=== PATIENT | female | born 1965 | race Caucasian/White ===

== ENCOUNTER → 2019-08-24 08:50 | Outpatient (BNVA) | payer MEDICAID, SELFPAY | PROVIDERS: Referring Provider Nurse Practitioner; Visit Provider Specialist | DX: G43.711 Chronic migraine without aura, intractable, with status migrainosus (principal); M79.7 Fibromyalgia | CPT/HCPCS: 99204; 99214 ==

== ENCOUNTER 2019-08-29 23:08 | Emergency (ER) | payer MEDICAID, SELFPAY ==
[2019-08-29 23:21] VITALS: BP 130/84; PULSE 88; RESP 16; TEMP 36.6; O2SAT 98; BMI 29.8
--- NOTE | 2019-08-29 23:34 | ED_ITS ---
HPI - Female Genitourinary General: Chief complaint: Urogenital-Female Stated complaint: kidney problems Time Seen by Provider: 08/29/19 23:21 History of Present Illness: HPI Narrative: Patient complained about urinary frequency hesitation for the last week. Has been taking Azo-Standard today. MD elicited complaint: dysuria Pertinent past history: recurrent UTIs Onset (ago): day(s) Associated symptoms: Deny abdominal pain, headache(s) or nausea Date of Last Menstrual Period: 08/22/19 Review of Systems Const: Denies: fever, chills or body aches Eyes: Denies: change in vision or blurry vision ENMT: Denies: throat pain or nasal congestion Card: Denies: chest pain or shortness of breath on exertion Resp: Denies: shortness of breath, productive cough or non-productive cough GI: Denies: abdominal pain, nausea or vomiting : Reports: urinary frequency, urinary urgency and urinary hesitancy Musc: Denies: extremity pain Skin/Breast: Denies: rash Neuro: Denies: headache Psych: Denies: anxiety or depression Man/Lymph: Denies: easy bruising PFSH ED PFSH: Statuses (acute, chronic, etc) shown below reflect problem list status as previously entered and may not be historically accurate Social History Smoking and tobacco status: former smoker Alcohol intake: never Female Reproductive History: Date of last menstrual period: 08/22/19 Physical Exam Const: COMMON NORMALS: no apparent distress, average body habitus and oriented x3 HENMT: COMMON NORMALS: normocephalic HEAD & SCALP: normal to inspection and normocephalic FACE & SINUS: normal facial exam Eye: COMMON NORMALS: conjunctivae normal GENERAL EYE: normal appearance of both eyes CONJUNCTIVA: Yes conjunctivae normal Neck/C-Spine: COMMON NORMALS: no JVD Chest: COMMONS NORMALS: inspection of chest normal Resp: COMMON NORMALS: normal respiratory effort and clear to auscultation bilaterally AUSCULTATION: clear to auscultation bilaterally Cardio: COMMON NORMALS: no JVD, regular rate and regular rhythm RATE: regular rate RHYTHM: regular rhythm GI: COMMON NORMALS: normal to inspection, nondistended, normoactive bowel sounds Extremity: COMMON NORMALS: normal to inspection and full ROM Neuro: COMMON NORMALS: oriented x3 Course Vital Signs: Vital signs: Vital Signs Temperature 97.9 F 08/29/19 23:21 Pulse Rate 88 08/29/19 23:21 Respiratory Rate 16 08/29/19 23:21 Blood Pressure 130/84 08/29/19 23:21 Pulse Oximetry 98 08/29/19 23:21 MDM - Female MDM Narrative: Medical decision making narrative: Suspected UTI based on patient's clinical symptoms Lab Data: Labs: Lab Results 08/29/19 Range/Units 23:35 Urine Color Red (Yellow) Urine Appearance Clear (CLEAR) Urine pH 5 (5-7) Ur Specific Gravit y 1.030 (1.005-1.030) Urine Protein 1+ H (Negative) Urine Glucose (UA) Norm (Normal) Urine Ketones Negative (Negative) Urine Occult Blood Neg (Negative) Urine Nitrate Negative (Negative) Urine Bilirubin 2+ H (NEGATIVE) Urine Urobilinogen 4 H (Negative) mg/dL Ur Leukocyte Pricila ase Negative (Negative) Urine RBC 0-4 H (0-2) /hpf Urine WBC 25-40 H (0-5) /hpf Ur Squamous Epith Cells 0-4 H (0-5) Urine Bacteria 2+ H (NONE) Urine Mucus 1+ Discharge Plan Discharge Patient Disposition: Home, Self-Care Clinical Impression: Urinary tract infection Qualifiers: Urinary tract infection type: acute cystitis Hematuria presence: without hematuria Qualified Code(s): N30.00 - Acute cystitis without hematuria Condition: Stable Prescriptions: New Bactrim DS 800-160 mg tablet 1 tab PO DAILY 5 Days RF: 0 No Action acetaminophen [Tylenol] 325 mg capsule 650 mg PO Q6H PRNRF: 0 ibuprofen [IBU] 800 mg tablet 800 mg PO Q8H RF: 0 venlafaxine [Effexor XR] 75 mg capsule,extended release 24hr 75 mg PO QAM 7 Days Qty: 7 RF: 0 venlafaxine [Effexor XR] 150 mg capsule,extended release 24hr 150 mg PO QAM Qty: 30 RF: 4 Discharge Orders: Discharge Order (Routine); Ordered 08/30/19 Ordered By: Nicko Wolff Referrals: Ashwini Rollins FNP [Primary Care Provider] - Discharge Diet: Usual diet Discharge Activity: Resume usual activity Patient Instructions: Dysuria (ED) Activity Restrictions/Additional Instructions: Follow-up with medical provider as directed. Take medications as prescribed. Return to the ER or your medical provider if condition worsens. Please read and understand discharge instructions. If any questions ask please. 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
[2019-08-29 23:56] LABS: Add Urine Microscopic? YES; Bacteria Urine 2+; Bilirubin Urine 2+ (NEGATIVE); Blood Urine Neg (Negative); Glucose Urine UA Norm (Normal); Ketones Urine Negative (Negative); Leukocyte Esterase Urine Negative (Negative); Nitrate Urine Negative (Negative); Protein Urine 1+ (Negative); RBC Urine 0-4 /hpf (0-2); Squamous Epithelial Cell Urine 0-4 (0-5); Urine Appearance Clear (CLEAR); Urine Color Red (Yellow); Urobilinogen Urine 4 mg/dL (Negative); WBC Urine 25-40 /hpf (0-5); pH Urine 5 (5-7)
[2019-08-29 23:57] LABS: Add Urine Culture? Yes; Mucus Urine 1+
[2019-08-30] MEDS: sulfamethoxazole-trimeth DS 160-800 mg Tablet 1 TAB PO (00:10)
== END 2019-08-30 00:15 | disposition home or self-care (01) ==
PROVIDERS: Emergency Provider Nurse Practitioner Family; PCP Nurse Practitioner
DX: N30.00 Acute cystitis without hematuria (principal); Z87.891 Personal history of nicotine dependence
CPT/HCPCS: 81001; 87077; 87086; 87186; 99282

== ENCOUNTER → 2021-02-13 15:45 | Outpatient (BNVA) | payer MEDICAID, SELFPAY | PROVIDERS: Visit Provider Internal Medicine | DX: B19.20 Unspecified viral hepatitis C without hepatic coma (principal) | CPT/HCPCS: 87902 ==

== ENCOUNTER 2022-01-23 20:00 | Outpatient (CLI) | payer MEDICAID, SELFPAY | END 2022-01-23 20:01 | disposition home or self-care (01) | LOC: SLEEP 01-24 08:29 | PROVIDERS: Visit Provider Anesthesiology Pain Medicine | DX: G47.33 Obstructive sleep apnea (adult) (pediatric) (principal) | CPT/HCPCS: 95810 ==

== ENCOUNTER 2022-02-26 20:00 | Outpatient (CLI) | payer MEDICAID, SELFPAY | END 2022-02-26 20:01 | disposition home or self-care (01) | LOC: SLEEP 02-27 02:45 | PROVIDERS: Visit Provider Anesthesiology Pain Medicine | DX: G47.33 Obstructive sleep apnea (adult) (pediatric) (principal) | CPT/HCPCS: 95811 ==

== ENCOUNTER → 2025-03-08 10:35 | Outpatient (BNVA) | payer MEDICAID, SELFPAY | PROVIDERS: Visit Provider Orthopaedic Surgery | DX: M54.2 Cervicalgia (principal); M89.8X1 Other specified disorders of bone, shoulder | CPT/HCPCS: 72050; 99203 ==

== ENCOUNTER 2025-03-30 11:43 | Outpatient (CLI) | payer MEDICAID, SELFPAY ==
--- NOTE | 2025-03-30 12:00 | CT_ITS ---
WS: [id number] CT chest wo con [id number] HISTORY: clavicle pain TECHNIQUE: Axial imaging performed through the upper thorax. CT is performed dedicated to the SC joints and clavicle. Coronal and sagittal reformats are submitted. All CT scans at [facility] use at least one of these dose optimization techniques: automated exposure control; mA and/or kV adjustment per patient size (includes targeted exams where dose is matched to clinical indication); or iterative reconstruction. CONTRAST: None DLP: 428.98 mGy.cm COMPARISON: None available. Medial LEFT clavicle is approximately 2 mm higher than the RIGHT. Posterior alignment appears normal on the axial imaging. Very slight bony prominence involving the anterior medial head of the LEFT clavicle with a tiny osteophyte. No significant narrowing of the sternoclavicular joints. No significant soft tissue or inflammatory changes. No fracture or healed fracture. Mild narrowing of the AC joint with hypertrophic degenerative changes. Lungs and central airway: Visualized lungs of the upper thorax are negative. Pleura: Visualized pleura is negative. Prior cervical fusion. Prior replacement of the RIGHT shoulder. No destructive bone lesions. CT/CT chest wo con [id number] IMPRESSION: 1. Medial LEFT clavicle is approximately 2 mm higher than the RIGHT. This may be due to mild bony prominence with a small osteophyte involving the medial LEF T clavicle. 2. No associated bony destruction or increased soft tissue at the SC joints. N o erosions. 3. Mild bilateral AC joint arthritis.
--- NOTE | 2025-03-30 13:00 | MR_ITS ---
WS: [id number] MRI CERVICAL SPINE NONCONTRAST HISTORY: Neck Pain COMPARISON: Radiograph 03/08/2025 Technique: Multiplanar, multisequence noncontrast imaging of the cervical spine. Anterior cervical fusion from C4-C7. Interbody disc spacers at C4-5, C5-6 and C6-7. Straightening and mild curvature of the normal cervical lordosis. No acute fractures or marrow edema identified. Signal within the cervical cord is normal. Visualized posterior fossa is unremarkable. Craniocervical junction, C1 and C2 relationship, odontoid process and soft tissues are normal. C2-C3: Small LEFT foraminal osteophytes with mild foraminal narrowing. C3-C4: Annular disc bulging with osteophytic ridging. Bilateral foraminal disc osteophyte complexes resulting in moderate stenosis, LEFT greater than RIGHT. C4-C5: Mild osteophytic ridging and mild foraminal stenosis and mild facet arthritis. C5-C6: Small central disc osteophyte. Bilateral foraminal disc osteophyte complexes. Mild central and at least moderate foraminal stenosis and mild facet arthritis. C6-C7: Diffuse disc bulging and osteophytic ridging. Small central disc protrusion. Mild central with moderate to severe bilateral foraminal stenosis and facet arthritis. C7-T1: Diffuse osteophytic ridging and mild disc bulging. Mild central and bilateral moderate foraminal stenosis predominate due to osteophyte disease. Paravertebral soft tissues are negative. MR/MR cervical spin wo con* [id number] IMPRESSION: 1. Status post anterior cervical fusion from C4-C7. Interbody disc spacers at C4-5, C5-6 and C6-7. No complications are evident. 2. 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 3. C6-7: Small central disc protrusion. Mild central with moderate to severe b ilateral foraminal stenosis. 4. C5-6 send C7-T1: Mild central and bilateral foraminal stenosis. 5. Mild foraminal stenosis on the LEFT at C2-3 and bilateral at C4-5. 6. C3-4: Moderate foraminal stenosis LEFT greater than RIGHT.
== END 2025-03-30 11:44 | disposition home or self-care (01) ==
PROVIDERS: Visit Provider Orthopaedic Surgery
DX: M89.8X1 Other specified disorders of bone, shoulder (principal); M43.22 Fusion of spine, cervical region; M48.02 Spinal stenosis, cervical region; M48.03 Spinal stenosis, cervicothoracic region; M50.223 Other cervical disc displacement at C6-C7 level; M50.31 Other cervical disc degeneration, high cervical region; M47.812 Spondylosis without myelopathy or radiculopathy, cervical region; M25.78 Osteophyte, vertebrae; M50.33 Other cervical disc degeneration, cervicothoracic region; M19.012 Primary osteoarthritis, left shoulder
CPT/HCPCS: 71250; 72141

== ENCOUNTER 2025-04-07 14:45 | Outpatient (CLI) | payer MEDICAID, SELFPAY | END 2025-04-07 14:46 | disposition home or self-care (01) | LOC: RAD 04-09 11:10 | PROVIDERS: PCP Family Medicine; Visit Provider Orthopaedic Surgery | DX: M54.2 Cervicalgia (principal); Z09 Encounter for follow-up examination after completed treatment for conditions other than malignant neoplasm | CPT/HCPCS: 99213 ==

== ENCOUNTER 2025-05-10 22:05 | Emergency (ER) | payer MEDICAID, SELFPAY ==
[2025-05-10 22:06] VITALS: BP 146/83; PULSE 102; RESP 18; TEMP 36.7; O2SAT 95; BMI 48.6
--- NOTE | 2025-05-10 22:06 | ECG_ITS ---
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
--- NOTE | 2025-05-10 22:15 | XRR_ITS ---
PROCEDURE INFORMATION: Exam: XR Chest Exam date and time: 05/10/2025 10:15 PM Age: 59 years old Clinical indication: Pain; Chest pressure; Prior surgery; Surgery date: 6+ months; Surgery type: C. Spine RT shoulder; Additional info: Cp/sob TECHNIQUE: Imaging protocol: Radiologic exam of the chest. Views: 1 view. COMPARISON: CT chest wo con [id number] 03/30/2025 12:01 PM FINDINGS: Lungs: Unremarkable. No consolidation. Pleural spaces: Unremarkable. No pleural effusion. No pneumothorax. Heart/Mediastinum: Unremarkable. No cardiomegaly. Bones/joints: Patient is status post cervical spine fusion. There is a right shoulder arthroplasty present. XR/XR chest 1V portable [id number] IMPRESSION: No acute cardiopulmonary process demonstrated.
--- NOTE | 2025-05-10 22:16 | PC.NURSE ---
Pt unable to answer questions for the suicide assessment due to AMS.
--- OUTSIDE RECORDS SUMMARY | 2025-05-10 22:19 | XMS_ITS | Patient Health Record ---
Author Organization [facility] Address [address] [place], [place] [address] Care Team Providers Care Cloth Desizing Range Tender Name Role Phone DR. Jai Graham Primary Care Provider [phone] Fareed, Tangela Rich Unavailable Jaquelin Muro Unavailable [phone] Penelope Moser Unavailable [phone] DR. Artemio Payne SR. Unavailable [phone] Linda Garcia Unavailable [phone] Anupam Luong Unavailable [phone] Allergies Allergen (clinical drug ingredient) Drug/Non Drug Allergy documented on EMR Reaction Allergy Type Onset Date Status codeine Codeine Unknown Drug Allergy Active Results Component Value Reference Range Flag Notes Presumptive Drug Test - Spec imen Type Urine Reviewed date:03/28/2025 08:06:18 PM Interpretation: Performing Lab: Notes/Report: Opiates Screen Positive 150 ng/mL ng/ml H Benzodiazepines Screen Negative 150 ng/mL ng/ml Amphetamines Screen Negative 600 ng/mL ng/ml Cocaine Screen Negative 150 ng/mL ng/ml Methadone Screen Negative 150 ng/mL ng/ml 6-DEB Screen Negative 60 ng/mL ng/ml Methamphetamine Screen Negative 600 ng/mL ng/ml Fentanyl Screen Negative 9 ng/mL ng/ml Tricyclic Antidepressants Screen Negative 150 ng/mL ng/m l Buprenorphine Screen Negative 75 ng/mL ng/ml Cannabis Screen Negative 150 ng/mL ng/ml Full Confirmation - Specimen Type Urine Reviewed date:03/28/2025 08:06:18 PM Interpretation: Performing Lab: Notes/Report: 6-DEB Negative 20 ng/mL ng/mL 7-Aminoclonazepam Negative 50 ng/mL ng/mL a-Hydroxyalprazolam Negative 50 ng/mL ng/mL Alprazolam Negative 50 ng/mL ng/mL Amphetamine Negative 50 ng/mL ng/mL Benzoylecgonine Negative 50 ng/mL ng/mL Buprenorphine Negative 25 ng/mL ng/mL Carisoprodol Negative 50 ng/mL ng/mL Clonazepam Negative 50 ng/mL ng/mL Codeine Negative 50 ng/mL ng/mL Cyclobenzaprine Negative 50 ng/mL ng/mL Diazepam Negative 50 ng/mL ng/mL EDDP Negative 50 ng/mL ng/mL Fentanyl Negative 3 ng/mL ng/mL Gabapentin Negative 500 ng/mL ng/mL Hydrocodone Negative 50 ng/mL ng/mL Hydromorphone >500 50 ng/mL ng/mL H Lorazepam Negative 50 ng/mL ng/mL MDMA Negative 50 ng/mL ng/mL Meprobamate Negative 50 ng/mL ng/mL Methadone Negative 50 ng/mL ng/mL Methamphetamine Negative 200 ng/mL ng/mL Morphine Negative 50 ng/mL ng/mL Naloxone Negative 50 ng/mL ng/mL Naltrexone Negative 50 ng/mL ng/mL Norbuprenorphine Negative 25 ng/mL ng/mL Nordiazepam Negative 50 ng/mL ng/mL Norfentanyl Negative 10 ng/mL ng/mL Norpropoxyphene Negative 50 ng/mL ng/mL Oxazepam Negative 50 ng/mL ng/mL Oxycodone Negative 50 ng/mL ng/mL Oxymorphone Negative 50 ng/mL ng/mL Pregabalin Negative 200 ng/mL ng/mL Propoxyphene Negative 50 ng/mL ng/mL Tapentadol Negative 50 ng/mL ng/mL Temazepam Negative 50 ng/mL ng/mL Tramadol Negative 50 ng/mL ng/mL THC Negative 50 ng/mL ng/mL Amitriptyline Negative 50 ng/mL ng/mL Carboxyzolpidem Negative 100 ng/mL ng/mL Desmethyldoxepin Negative 50 ng/mL ng/mL Doxepin Negative 50 ng/mL ng/mL Imipramine Negative 50 ng/mL ng/mL Methylphenidate Negative 50 ng/mL ng/mL Nortriptyline Negative 50 ng/mL ng/mL o-Desmethyltramadol Negative 50 ng/mL ng/mL Ritalinic Acid Negative 50 ng/mL ng/mL Desalkylflurazepam Negative 50 ng/mL ng/mL Flunitrazepam Negative 50 ng/mL ng/mL Flurazepam Negative 50 ng/mL ng/mL Ketamine Negative 50 ng/mL ng/mL Meperidine Negative 50 ng/mL ng/mL Mitragynine Negative 50 ng/mL ng/mL Norhydrocodone Negative 50 ng/mL ng/mL Norketamine Negative 50 ng/mL ng/mL Normeperidine Negative 50 ng/mL ng/mL Noroxycodone Negative 50 ng/mL ng/mL PCP Negative 25 ng/mL ng/mL Phentermine Negative 50 ng/mL ng/mL Zaleplon Negative 20 ng/mL ng/mL Trazodone Negative 50 ng/mL ng/mL Full Confirmation - Specimen Type Urine Reviewed date:03/28/2025 08:07:12 PM Interpretation: Performing Lab: Notes/Report: 6-DEB Negative 20 ng/mL ng/mL 7-Aminoclonazepam Negative 50 ng/mL ng/mL a-Hydroxyalprazolam Negative 50 ng/mL ng/mL Alprazolam Negative 50 ng/mL ng/mL Amphetamine Negative 50 ng/mL ng/mL Benzoylecgonine Negative 50 ng/mL ng/mL Buprenorphine Negative 25 ng/mL ng/mL Carisoprodol Negative 50 ng/mL ng/mL Clonazepam Negative 50 ng/mL ng/mL Codeine Negative 50 ng/mL ng/mL Cyclobenzaprine Negative 50 ng/mL ng/mL Diazepam Negative 50 ng/mL ng/mL EDDP Negative 50 ng/mL ng/mL Fentanyl Negative 3 ng/mL ng/mL Gabapentin Negative 500 ng/mL ng/mL Hydrocodone Negative 50 ng/mL ng/mL Hydromorphone Negative 50 ng/mL ng/mL Lorazepam Negative 50 ng/mL ng/mL MDMA Negative 50 ng/mL ng/mL Meprobamate Negative 50 ng/mL ng/mL Methadone Negative 50 ng/mL ng/mL Methamphetamine Negative 200 ng/mL ng/mL Morphine Negative 50 ng/mL ng/mL Naloxone Negative 50 ng/mL ng/mL Naltrexone Negative 50 ng/mL ng/mL Norbuprenorphine Negative 25 ng/mL ng/mL Nordiazepam Negative 50 ng/mL ng/mL Norfentanyl Negative 10 ng/mL ng/mL Norpropoxyphene Negative 50 ng/mL ng/mL Oxazepam Negative 50 ng/mL ng/mL Oxycodone >500 50 ng/mL ng/mL H Oxymorphone 195 50 ng/mL ng/mL H Pregabalin Negative 200 ng/mL ng/mL Propoxyphene Negative 50 ng/mL ng/mL Tapentadol Negative 50 ng/mL ng/mL Temazepam Negative 50 ng/mL ng/mL Tramadol Negative 50 ng/mL ng/mL THC Negative 50 ng/mL ng/mL Amitriptyline Negative 50 ng/mL ng/mL Carboxyzolpidem Negative 100 ng/mL ng/mL Desmethyldoxepin Negative 50 ng/mL ng/mL Doxepin Negative 50 ng/mL ng/mL Imipramine Negative 50 ng/mL ng/mL Methylphenidate Negative 50 ng/mL ng/mL Nortriptyline Negative 50 ng/mL ng/mL o-Desmethyltramadol Negative 50 ng/mL ng/mL Ritalinic Acid Negative 50 ng/mL ng/mL Desalkylflurazepam Negative 50 ng/mL ng/mL Flunitrazepam Negative 50 ng/mL ng/mL Flurazepam Negative 50 ng/mL ng/mL Ketamine Negative 50 ng/mL ng/mL Meperidine Negative 50 ng/mL ng/mL Mitragynine Negative 50 ng/mL ng/mL Norhydrocodone Negative 50 ng/mL ng/mL Norketamine Negative 50 ng/mL ng/mL Normeperidine Negative 50 ng/mL ng/mL Noroxycodone >500 50 ng/mL ng/mL H PCP Negative 25 ng/mL ng/mL Phentermine Negative 50 ng/mL ng/mL Zaleplon Negative 20 ng/mL ng/mL Trazodone Negative 50 ng/mL ng/mL Presumptive Drug Test - Spec imen Type Urine Reviewed date:03/28/2025 08:07:12 PM Interpretation: Performing Lab: Notes/Report: Opiates Screen Positive 150 ng/mL ng/ml H Benzodiazepines Screen Negative 150 ng/mL ng/ml Amphetamines Screen Negative 600 ng/mL ng/ml Cocaine Screen Negative 150 ng/mL ng/ml Methadone Screen Negative 150 ng/mL ng/ml 6-DEB Screen Negative 60 ng/mL ng/ml Methamphetamine Screen Negative 600 ng/mL ng/ml Fentanyl Screen Negative 9 ng/mL ng/ml Tricyclic Antidepressants Screen Negative 150 ng/mL ng/m l Buprenorphine Screen Negative 75 ng/mL ng/ml Cannabis Screen Negative 150 ng/mL ng/ml Reason For Referral No Information Medications Medication SIG (Take, Route, Frequency, Duration) Notes Start Date End Date Status Narcan 4 MG/0.1ML Liquid 1 spray Nasally every 3 to 5 mnutes; Duration: 1 days UNTIL EMS ARRIVES OR RESPONSIVE. 11/09/2024 Active HYDROmorphone HCl 4 MG Tablet 1 tablet as needed Orally FOUR TIMES A DAY; Duration: 28 days 04/22/2025 Active Problems Problem Type SNOMED Code ICD Code Onset Dates Problem Status W/U Status Risk Notes Problem Chronic pain syndrome (978207039) Chronic pain syndrome (G89.4) Active confirmed Problem Lumbar radiculopathy (114234076) Radiculopathy, lumbar region (M54.16) Active confirmed Problem Cervicalgia (75380149) Cervicalgia (M54.2) Active confirmed Problem High risk drug monitoring status (767434144) criminal attorney (current) use of opiate analgesic (Z79.891) Active confirmed Problem Postprocedural states (798061305) History of neck surgery (Z98.890) Active confirmed Problem Lumbar pain (805993967) Lumbar pain (M54.50) Active confirmed Problem Scoliosis (193487631) Mild scoliosis (M41.9) Active confirmed Vital Signs Heart Rate 97 /min 04/25/2025 Respiratory Rate 20 /min 04/25/2025 Height-cm 165.1 cm 04/25/2025 Oximetry 96 % 04/25/2025 Blood pressure diastolic 80 mm Hg 04/25/2025 Weight-kg 135.17 kg 04/25/2025 Height 65 in 04/25/2025 Blood pressure systolic 152 mm Hg 04/25/2025 Weight 298 lbs 04/25/2025 BMI 49.58 kg/m2 04/25/2025 Encounters Encounter Location Date Provider Diagnosis [facility] [place] [address] [address] 07/22/2024 Artemio Payne [facility] [place] [address] [address] 12/09/2024 Artemio Payne custodial (current) use of opiate analgesic Z79.891 and custodial use of drug Z79.899 [facility] [address], [place] [address] 05/28/2024 Jaquelin Muro Chronic pain syndrome G89.4 ; custodial (current) use of opiate analgesic Z79.891 ; Lumbar pain M54.50 ; Cervicalgia M54.2 ; Radiculopathy, lumbar region M54.16 ; History of neck surgery Z98.890 and Mild scoliosis M41.9 [facility] [address], [place] [address] 06/25/2024 Jaquelin Muro Chronic pain syndrome G89.4 ; criminal attorney (current) use of opiate analgesic Z79.891 ; Lumbar pain M54.50 ; Cervicalgia M54.2 ; Radiculopathy, lumbar region M54.16 ; History of neck surgery Z98.890 ; Mild scoliosis M41.9 ; Pain, joint, knee, left M25.562 and Pain, joint, knee, right M25.561 [facility] [address], [place] [address] 07/22/2024 Artemio Payne Chronic pain syndrome G89.4 ; criminal attorney (current) use of opiate analgesic Z79.891 ; Lumbar pain M54.50 ; Cervicalgia M54.2 ; Radiculopathy, lumbar region M54.16 ; History of neck surgery Z98.890 and Mild scoliosis M41.9 [facility] [address] [address] 08/19/2024 Penelope Moser Chronic pain syndrome G89.4 ; criminal attorney (current) use of opiate analgesic Z79.891 ; Lumbar pain M54.50 ; Cervicalgia M54.2 ; Radiculopathy, lumbar region M54.16 ; History of neck surgery Z98.890 and Mild scoliosis M41.9 [facility] [address] [address] 09/16/2024 Penelope Moser Lumbar pain M54.50 ; Radiculopathy, lumbar region M54.16 ; Cervicalgia M54.2 ; History of neck surgery Z98.890 ; Mild scoliosis M41.9 ; Chronic pain syndrome G89.4 and criminal attorney (current) use of opiate analgesic Z79.891 [facility] [address] [place] [address] 10/14/2024 Artemio Payne Chronic pain syndrome G89.4 ; Radiculopathy, lumbar region M54.16 ; criminal attorney (current) use of opiate analgesic Z79.891 ; Lumbar pain M54.50 ; Cervicalgia M54.2 ; History of neck surgery Z98.890 and Mild scoliosis M41.9 [facility] [place] [address] [place] [address] 10/14/2024 Artemio Perezmira criminal attorney (current) use of opiate analgesic Z79.891 and criminal attorney use of drug Z79.899 [facility] [address] [place] [address] 11/11/2024 Artemio Perezmira Chronic pain syndrome G89.4 ; Radiculopathy, lumbar region M54.16 ; criminal attorney (current) use of opiate analgesic Z79.891 ; Lumbar pain M54.50 ; Cervicalgia M54.2 ; History of neck surgery Z98.890 and Mild scoliosis M41.9 [facility] [address] [place] [address] 12/09/2024 Artemio Payne Chronic pain syndrome G89.4 ; Radiculopathy, lumbar region M54.16 ; criminal attorney (current) use of opiate analgesic Z79.891 ; Lumbar pain M54.50 ; Cervicalgia M54.2 ; History of neck surgery Z98.890 and Mild scoliosis M41.9 [facility] [address] [place] [address] 01/06/2025 Linda Garcia Chronic pain syndrome G89.4 ; Radiculopathy, lumbar region M54.16 ; custodial (current) use of opiate analgesic Z79.891 ; Lumbar pain M54.50 ; Cervicalgia M54.2 ; History of neck surgery Z98.890 and Mild scoliosis M41.9 [facility] [address] [place] [address] 01/31/2025 Penelope Moser Lumbar pain M54.50 ; Radiculopathy, lumbar region M54.16 ; Cervicalgia M54.2 ; History of neck surgery Z98.890 ; Mild scoliosis M41.9 ; Chronic pain syndrome G89.4 and custodial (current) use of opiate analgesic Z79.891 [facility] [address] [address] 02/28/2025 Penelope Moser Lumbar pain M54.50 ; Cervicalgia M54.2 ; Radiculopathy, lumbar region M54.16 ; History of neck surgery Z98.890 ; Mild scoliosis M41.9 ; Chronic pain syndrome G89.4 and custodial (current) use of opiate analgesic Z79.891 [facility] [address] [address] 03/28/2025 Penelope Moser Lumbar pain M54.50 ; Cervicalgia M54.2 ; Radiculopathy, lumbar region M54.16 ; History of neck surgery Z98.890 ; Mild scoliosis M41.9 ; Chronic pain syndrome G89.4 and custodial (current) use of opiate analgesic Z79.891 [facility] [address] [place] [address] 04/25/2025 Penelope Moser Lumbar pain M54.50 ; Cervicalgia M54.2 ; Radiculopathy, lumbar region M54.16 ; History of neck surgery Z98.890 ; Mild scoliosis M41.9 ; Chronic pain syndrome G89.4 and criminal attorney (current) use of opiate analgesic Z79.891 [facility] [address] [place] [address] 05/28/2024 Artemio Stephensmyer Chronic pain syndrome G89.4 [facility] [address] [place] [address] 06/25/2024 Artemio Essmyer Chronic pain syndrome G89.4 [facility] [address] [place] [address] 08/19/2024 Artemio Stephensmyer Chronic pain syndrome G89.4 [facility] [address] [place] [address] 09/16/2024 Artemio Essmyer Chronic pain syndrome G89.4 [facility] [address], [place] [address] 01/06/2025 Artemio Payne Radiculopathy, lumbar region M54.16 [facility] [address], [place] [address] 01/31/2025 Artemio Payne Radiculopathy, lumbar region M54.16 [facility] [address], [place] [address] 02/03/2025 Artemio Payne Radiculopathy, lumbar region M54.16 [facility] [address], [place] [address] 02/28/2025 Rich Garciaesquita Radiculopathy, lumbar region M54.16 [facility] [address], [place] [address] 03/28/2025 Rich Floresqukamryn Radiculopathy, lumbar region M54.16 [facility] [address], [place] [address] 04/25/2025 Anupam Luong Radiculopathy, lumbar region M54.16 Assessments Encounter Date Diagnosis (ICD Code) Assessment Notes Treatment Notes Treatment Clinical Notes Section Notes 05/28/2024 Chronic pain syndrome (ICD-10 - G89.4) PATIENT XRAY SHOWED OSTEOPOROSIS CHANGES. ADVISED PATIENT TO FOLLOW-UP WITH PCP. SHE REPORTS SHE BELIEVES SHE HAS ALREADY HAD DEXA SCAN DONE. PATIENT TO FOLLOW-UP WITH PCP FOR FURTHER EVALUATION AND MANAGEMENT. 05/28/2024 criminal attorney (current) use of opiate analgesic (ICD-10 - Z79.891) 05/28/2024 Chronic pain syndrome (ICD-10 - G89.4) 06/25/2024 Chronic pain syndrome (ICD-10 - G89.4) 06/25/2024 Chronic pain syndrome (ICD-10 - G89.4) 07/22/2024 Chronic pain syndrome (ICD-10 - G89.4) 08/19/2024 Chronic pain syndrome (ICD-10 - G89.4) PATIENT REPORTS GOING TO ER DUE TO INCREASED PAIN TO LUMBAR. CT SCANS WERE COMPLETED, PATIENT TO SIGN A RELEASE TO OBTAIN. PATIENT ALSO ADMITS TO BEING DISCHARGED HOME WITH FLEXERIL AND A 3 DAY PRESCRIPTION OF HYDROCODONE. SHE DID HAVE THE NORCO FILLLED AT THE PHARMACY BUT REPORTS NOT TAKING IT DUE TO IT CAUSING HER SEVERE ITCHING WHEN TAKING NORCO IN THE PAST. EDUCATED PATIENT THAT VIOLATES HER CONTRACT TO OBTAIN A NORCO PRESCRIPTION FROM ER, EDUCATED HER ON HER NARCOTIC CONTRACT THAT SHE SIGNED AND NOTIFIED HER IN THE FUTURE IT WILL RESULT IN TERMINATED FROM NARCOTIC CONTRACT. WILL DECREASE PRESCRIPTION BY 3 DAYS THIS VISIT. 08/19/2024 Chronic pain syndrome (ICD-10 - G89.4) 09/16/2024 Radiculopathy, lumbar region (ICD-10 - M54.16) 09/16/2024 Lumbar pain (ICD-10 - M54.50) CT SCHEDULED FOR 08/25/2024 AT [facility]- NOTE TO STAFF TO OBTAIN. 09/16/2024 Chronic pain syndrome (ICD-10 - G89.4) 10/14/2024 criminal attorney (current) use of opiate analgesic (ICD-10 - Z79.891) 10/14/2024 Chronic pain syndrome (ICD-10 - G89.4) PATIENT REQUESTING AN INCREASE IN OXYCODONE DUE TO UNCONTROLLED PAIN. DISCUSSED PATIENT WITH DR. PAYNE, HE ORDERED TO INCREASE TO FOUR TIMES A DAY. 10/14/2024 Radiculopathy, lumbar region (ICD-10 - M54.16) 11/11/2024 Chronic pain syndrome (ICD-10 - G89.4) PATIENT REQUESTING AN INCREASE IN OXYCODONE DUE TO UNCONTROLLED PAIN. DISCUSSED PATIENT WITH DR. PAYNE, HE ORDERED TO INCREASE TO FOUR TIMES A DAY. 12/09/2024 criminal attorney (current) use of opiate analgesic (ICD-10 - Z79.891) 12/09/2024 Chronic pain syndrome (ICD-10 - G89.4) 12/09/2024 Radiculopathy, lumbar region (ICD-10 - M54.16) 01/06/2025 Chronic pain syndrome (ICD-10 - G89.4) 01/06/2025 Radiculopathy, lumbar region (ICD-10 - M54.16) 01/31/2025 Lumbar pain (ICD-10 - M54.50) 01/31/2025 Radiculopathy, lumbar region (ICD-10 - M54.16) 02/03/2025 Radiculopathy, lumbar region (ICD-10 - M54.16) 02/28/2025 Lumbar pain (ICD-10 - M54.50) 02/28/2025 Radiculopathy, lumbar region (ICD-10 - M54.16) 03/28/2025 Lumbar pain (ICD-10 - M54.50) 03/28/2025 Radiculopathy, lumbar region (ICD-10 - M54.16) 04/25/2025 Radiculopathy, lumbar region (ICD-10 - M54.16) 04/25/2025 Lumbar pain (ICD-10 - M54.50) 04/25/2025 Cervicalgia (ICD-10 - M54.2) 03/28/2025 Cervicalgia (ICD-10 - M54.2) 02/28/2025 Cervicalgia (ICD-10 - M54.2) 01/31/2025 Radiculopathy, lumbar region (ICD-10 - M54.16) 01/31/2025 Cervicalgia (ICD-10 - M54.2) 01/06/2025 Radiculopathy, lumbar region (ICD-10 - M54.16) 12/09/2024 custodial use of drug (ICD-10 - Z79.899) 12/09/2024 criminal attorney (current) use of opiate analgesic (ICD-10 - Z79.891) 11/11/2024 Radiculopathy, lumbar region (ICD-10 - M54.16) 10/14/2024 custodial (current) use of opiate analgesic (ICD-10 - Z79.891) 10/14/2024 criminal attorney use of drug (ICD-10 - Z79.899) 09/16/2024 Cervicalgia (ICD-10 - M54.2) CT SCHEDULED FOR 08/25/2024 AT [facility]; NOTE TO STAFF TO OBTAIN. 08/19/2024 criminal attorney (current) use of opiate analgesic (ICD-10 - Z79.891) 07/22/2024 criminal attorney (current) use of opiate analgesic (ICD-10 - Z79.891) 06/25/2024 criminal attorney (current) use of opiate analgesic (ICD-10 - Z79.891) 05/28/2024 Lumbar pain (ICD-10 - M54.50) 05/28/2024 Cervicalgia (ICD-10 - M54.2) XRAY COMPLETED APR 2024. REVIEWED TODAY. WILL GET CT LSPINE FOR FURTHER EVALUATION. 06/25/2024 Lumbar pain (ICD-10 - M54.50) 07/22/2024 Lumbar pain (ICD-10 - M54.50) 09/16/2024 History of neck surgery (ICD-10 - Z98.890) 08/19/2024 Lumbar pain (ICD-10 - M54.50) CT SCHEDULED FOR 08/25/2024 AT [facility] 10/14/2024 Lumbar pain (ICD-10 - M54.50) CT SCHEDULED FOR 08/25/2024 AT [facility]- NOTE TO STAFF TO OBTAIN. 11/11/2024 criminal attorney (current) use of opiate analgesic (ICD-10 - Z79.891) 12/09/2024 Lumbar pain (ICD-10 - M54.50) 01/06/2025 criminal attorney (current) use of opiate analgesic (ICD-10 - Z79.891) 01/31/2025 History of neck surgery (ICD-10 - Z98.890) 02/28/2025 Radiculopathy, lumbar region (ICD-10 - M54.16) 03/28/2025 Radiculopathy, lumbar region (ICD-10 - M54.16) 04/25/2025 Radiculopathy, lumbar region (ICD-10 - M54.16) 03/28/2025 History of neck surgery (ICD-10 - Z98.890) 04/25/2025 History of neck surgery (ICD-10 - Z98.890) 02/28/2025 History of neck surgery (ICD-10 - Z98.890) 01/31/2025 Mild scoliosis (ICD-10 - M41.9) 01/06/2025 Lumbar pain (ICD-10 - M54.50) 12/09/2024 Cervicalgia (ICD-10 - M54.2) 11/11/2024 Lumbar pain (ICD-10 - M54.50) CT SCHEDULED FOR 08/25/2024 AT [facility]- NOTE TO STAFF TO OBTAIN. 09/16/2024 Mild scoliosis (ICD-10 - M41.9) 10/14/2024 Cervicalgia (ICD-10 - M54.2) CT SCHEDULED FOR 08/25/2024 AT [facility]; NOTE TO STAFF TO OBTAIN. 08/19/2024 Cervicalgia (ICD-10 - M54.2) CT SCHEDULED FOR 08/25/2024 AT [facility] 06/25/2024 Cervicalgia (ICD-10 - M54.2) CT BEING SCHEDULED. 07/22/2024 Cervicalgia (ICD-10 - M54.2) 05/28/2024 Radiculopathy, lumbar region (ICD-10 - M54.16) XRAY COMPLETED APR 2024. REVIEWED TODAY. WILL GET CT LSPINE FOR FURTHER EVALUATION. 07/22/2024 Radiculopathy, lumbar region (ICD-10 - M54.16) 05/28/2024 History of neck surgery (ICD-10 - Z98.890) 06/25/2024 Radiculopathy, lumbar region (ICD-10 - M54.16) CT BEING SCHEDULED. 09/16/2024 Chronic pain syndrome (ICD-10 - G89.4) PATIENT REQUESTING AN INCREASE IN OXYCODONE DUE TO UNCONTROLLED PAIN. DISCUSSED PATIENT WITH DR. PAYNE, HE ORDERED TO INCREASE TO FOUR TIMES A DAY. 08/19/2024 Radiculopathy, lumbar region (ICD-10 - M54.16) 10/14/2024 History of neck surgery (ICD-10 - Z98.890) 11/11/2024 Cervicalgia (ICD-10 - M54.2) CT SCHEDULED FOR 08/25/2024 AT [facility]; NOTE TO STAFF TO OBTAIN. 12/09/2024 History of neck surgery (ICD-10 - Z98.890) 01/31/2025 Chronic pain syndrome (ICD-10 - G89.4) 01/06/2025 Cervicalgia (ICD-10 - M54.2) 02/28/2025 Mild scoliosis (ICD-10 - M41.9) 04/25/2025 Mild scoliosis (ICD-10 - M41.9) 03/28/2025 Mild scoliosis (ICD-10 - M41.9) 04/25/2025 Chronic pain syndrome (ICD-10 - G89.4) 03/28/2025 Chronic pain syndrome (ICD-10 - G89.4) 01/31/2025 custodial (current) use of opiate analgesic (ICD-10 - Z79.891) 02/28/2025 Chronic pain syndrome (ICD-10 - G89.4) 01/06/2025 History of neck surgery (ICD-10 - Z98.890) 12/09/2024 Mild scoliosis (ICD-10 - M41.9) 10/14/2024 Mild scoliosis (ICD-10 - M41.9) 11/11/2024 History of neck surgery (ICD-10 - Z98.890) 08/19/2024 History of neck surgery (ICD-10 - Z98.890) 07/22/2024 History of neck surgery (ICD-10 - Z98.890) 09/16/2024 custodial (current) use of opiate analgesic (ICD-10 - Z79.891) 05/28/2024 Mild scoliosis (ICD-10 - M41.9) 06/25/2024 History of neck surgery (ICD-10 - Z98.890) 06/25/2024 Mild scoliosis (ICD-10 - M41.9) 08/19/2024 Mild scoliosis (ICD-10 - M41.9) 07/22/2024 Mild scoliosis (ICD-10 - M41.9) 11/11/2024 Mild scoliosis (ICD-10 - M41.9) 01/06/2025 Mild scoliosis (ICD-10 - M41.9) 02/28/2025 criminal attorney (current) use of opiate analgesic (ICD-10 - Z79.891) 03/28/2025 criminal attorney (current) use of opiate analgesic (ICD-10 - Z79.891) 04/25/2025 criminal attorney (current) use of opiate analgesic (ICD-10 - Z79.891) 06/25/2024 Pain, joint, knee, left (ICD-10 - M25.562) 06/25/2024 Pain, joint, knee, right (ICD-10 - M25.561) 05/28/2024 Other During the patient's visit today, we discussed their chronic pain, including the onset, duration, aggravating and relieving factors, nature of the pain, and their pain scale. We attempted to identify how the pain affected the patient's daily activities, mobility, mood, sleep, and relationships. We discussed both the long and short-term goals for pain management. We discussed the current medications including the dose, effectiveness, and potential side effects. Non-opioid therapies were considered, including NSAIDs and other adjuvant medications. We discussed the importance of exercise and recommended tailored exercises for the patient. We discussed physical therapy and potential referral to a physical therapist, if appropriate. We discussed the risks/benefits of alternative treatments such as acupuncture, care mgr, massage, and biofeedback. We discussed behavioral health and coping strategies. If applicable, we performed a PHQ-9 and SKYLAR-7 with the patient. If the patient scored as having anxiety or depression, they were given education on the diagnosis. We discussed the importance of addressing any mental health concerns as mental health disorders are a common comorbidity of chronic pain. We discussed techniques to reduce stress and promote relaxation. If applicable, the patient was offered a referral to behavioral health. We discussed lifestyle modifications, including getting appropriate sleep, eating a healthy diet, and striving to control their weight. We discussed avoiding activities that exacerbate their pain. We discussed that we would reassess their pain scale and adjust their care plan as needed during future visits. 06/25/2024 Other Notes: Will continue medications as previously prescribed. Patient reports medicaiton effective. Narcotic and controlled medicaiton prescription signed per Dr. Payne. Discussed proposal lead writer risks associated with being on opiate therapy, patient is aware and accepts risk (ie. addiction, oversedation, respiratory depression and even by overdose). During the patient's visit today, we discussed their chronic pain, including the onset, duration, aggravating and relieving factors, nature of the pain, and their pain scale. We attempted to identify how the pain affected the patient's daily activities, mobility, mood, sleep, and relationships. We discussed both the long and short-term goals for pain management.We discussed the current medications including the dose, effectiveness, and potential side effects. Non-opioid therapies were considered, including NSAIDs and other adjuvant medications.We discussed the importance of exercise and recommended tailored exercises for the patient. We discussed physical therapy and potential referral to a physical therapist, if appropriate.We discussed the risks/benefits of alternative treatments such as acupuncture, care mgr, massage, and biofeedback.We discussed behavioral health and coping strategies. If applicable, we performed a PHQ-9 and SKYLAR-7 with the patient. If the patient scored as having anxiety or depression, they were given education on the diagnosis. We discussed the importance of addressing any mental health concerns as mental health disorders are a common comorbidity of chronic pain. We discussed techniques to reduce stress and promote relaxation. If applicable, the patient was offered a referral to behavioral health.We discussed lifestyle modifications, including getting appropriate sleep, eating a healthy diet, and striving to control their weight. We discussed avoiding activities that exacerbate their pain.We discussed that we would reassess their pain scale and adjust their care plan as needed during future visits.Discussed all the risks, side effects, and drug interaction for longer term use of narcotics. The patient understandins and aware regarding all the risks involved. Discussed overdose prevention paln including Narcan. Chronic Opioid management - Patient continues to deny signs or symptoms of addiction, denies constipation. Continue medications as prescribed. 07/22/2024 Other During the patient's visit today, we discussed their chronic pain, including the onset, duration, aggravating and relieving factors, nature of the pain, and their pain scale. We attempted to identify how the pain affected the patient's daily activities, mobility, mood, sleep, and relationships. We discussed both the long and short-term goals for pain management. We discussed the current medications including the dose, effectiveness, and potential side effects. Non-opioid therapies were considered, including NSAIDs and other adjuvant medications. We discussed the importance of exercise and recommended tailored exercises for the patient. We discussed physical therapy and potential referral to a physical therapist, if appropriate. We discussed the risks/benefits of alternative treatments such as acupuncture, care mgr, massage, and biofeedback. We discussed behavioral health and coping strategies. If applicable, we performed a PHQ-9 and SKYLAR-7 with the patient. If the patient scored as having anxiety or depression, they were given education on the diagnosis. We discussed the importance of addressing any mental health concerns as mental health disorders are a common comorbidity of chronic pain. We discussed techniques to reduce stress and promote relaxation. If applicable, the patient was offered a referral to behavioral health. We discussed lifestyle modifications, including getting appropriate sleep, eating a healthy diet, and striving to control their weight. We discussed avoiding activities that exacerbate their pain. We discussed that we would reassess their pain scale and adjust their care plan as needed during future visits. 08/19/2024 Other Will continue all medication as previously prescribed, as patient reports effective. Narcotic prescription signed per Dr. Payne. Patient denies any side effects, states regimen is helping. Discussed the proposal lead writer risk (ie. Addiction, oversedation, respiratory depression, and even dealth by overdose) The patient has pathology and justification for chronic use of narcotics. Discussed the snf risk of being on opiate therapy, patient is aware and accepts the risk. The patient is not to drive or operate heavy equipment until knows how the medication will make them feel. Also discussed with the patient the new CDC guidelines regarding benzodiazepines and opiates. The fact that the CDC does not recommend taking both of these medications on an on-going basis. If the medication is prescribed b another physician we strongly discourage this practice. Should the patient continue to take benzodiazepines and opiates together despite the warning it is at their own risk. During the patient's visit today, we discussed their chronic pain, including the onset, duration, aggravating and relieving factors, nature of the pain, and their pain scale. We attempted to identify how the pain affected the patient's daily activities, mobility, mood, sleep, and relationships. We discussed both the long and short-term goals for pain management. We discussed the current medications including the dose, effectiveness, and potential side effects. Non-opioid therapies were considered, including NSAIDs and other adjuvant medications. We discussed the importance of exercise and recommended tailored exercises for the patient. We discussed physical therapy and potential referral to a physical therapist, if appropriate. We discussed the risks/benefits of alternative treatments such as acupuncture, care mgr, massage, and biofeedback. We discussed behavioral health and coping strategies. If applicable, we performed a PHQ-9 and SKYLAR-7 with the patient. If the patient scored as having anxiety or depression, they were given education on the diagnosis. We discussed the importance of addressing any mental health concerns as mental health disorders are a common comorbidity of chronic pain. We discussed techniques to reduce stress and promote relaxation. If applicable, the patient was offered a referral to behavioral health. We discussed lifestyle modifications, including getting appropriate sleep, eating a healthy diet, and striving to control their weight. We discussed avoiding activities that exacerbate their pain. We discussed that we would reassess their pain scale and adjust their care plan as needed during future visits. Discussed all the risk, side effects, and drug interactions for proposal lead writer use of narcotics. The patient understands and is aware regarding all the risk involved. Also discussed overdose prevention plan including Narcan 09/16/2024 Other Will continue all medication as previously prescribed, as patient reports effective. Narcotic prescription signed per Dr. Payne. Patient denies any side effects, states regimen is helping. Discussed the proposal lead writer risk (ie. Addiction, oversedation, respiratory depression, and even dealth by overdose) The patient has pathology and justification for chronic use of narcotics. Discussed the proposal lead writer risk of being on opiate therapy, patient is aware and accepts the risk. The patient is not to drive or operate heavy equipment until knows how the medication will make them feel. Also discussed with the patient the new CDC guidelines regarding benzodiazepines and opiates. The fact that the CDC does not recommend taking both of these medications on an on-going basis. If the medication is prescribed b another physician we strongly discourage this practice. Should the patient continue to take benzodiazepines and opiates together despite the warning it is at their own risk. During the patient's visit today, we discussed their chronic pain, including the onset, duration, aggravating and relieving factors, nature of the pain, and their pain scale. We attempted to identify how the pain affected the patient's daily activities, mobility, mood, sleep, and relationships. We discussed both the long and short-term goals for pain management. We discussed the current medications including the dose, effectiveness, and potential side effects. Non-opioid therapies were considered, including NSAIDs and other adjuvant medications. We discussed the importance of exercise and recommended tailored exercises for the patient. We discussed physical therapy and potential referral to a physical therapist, if appropriate. We discussed the risks/benefits of alternative treatments such as acupuncture, care mgr, massage, and biofeedback. We discussed behavioral health and coping strategies. If applicable, we performed a PHQ-9 and SKYLAR-7 with the patient. If the patient scored as having anxiety or depression, they were given education on the diagnosis. We discussed the importance of addressing any mental health concerns as mental health disorders are a common comorbidity of chronic pain. We discussed techniques to reduce stress and promote relaxation. If applicable, the patient was offered a referral to behavioral health. We discussed lifestyle modifications, including getting appropriate sleep, eating a healthy diet, and striving to control their weight. We discussed avoiding activities that exacerbate their pain. We discussed that we would reassess their pain scale and adjust their care plan as needed during future visits. Discussed all the risk, side effects, and drug interactions for snf use of narcotics. The patient understands and is aware regarding all the risk involved. Also discussed overdose prevention plan including Narcan 10/14/2024 Other The patient is engaged in a longitudinal care relationship for the ongoing management of complex chronic conditions, including Chronic Pain Syndrome and long-term opioid analgesic use, along with other chronic pain conditions outlined in the assessment. The treatment plan involves continuous monitoring that includes random urine drug screens, routine imaging, coordination of care, and a multidisciplinary approach, which has been discussed with the patient and will be followed accordingly. During the patient's visit today, we discussed their chronic pain, including the onset, duration, aggravating and relieving factors, nature of the pain, and their pain scale. We attempted to identify how the pain affected the patient's daily activities, mobility, mood, sleep, and relationships. We discussed both the long and short-term goals for pain management. We discussed the current medications including the dose, effectiveness, and potential side effects. Non-opioid therapies were considered, including NSAIDs and other adjuvant medications. We discussed the importance of exercise and recommended tailored exercises for the patient. We discussed physical therapy and potential referral to a physical therapist, if appropriate. We discussed the risks/benefits of alternative treatments such as acupuncture, care mgr, massage, and biofeedback. We discussed behavioral health and coping strategies. If applicable, we performed a PHQ-9 and SKYLAR-7 with the patient. If the patient scored as having anxiety or depression, they were given education on the diagnosis. We discussed the importance of addressing any mental health concerns as mental health disorders are a common comorbidity of chronic pain. We discussed techniques to reduce stress and promote relaxation. If applicable, the patient was offered a referral to behavioral health. We discussed lifestyle modifications, including getting appropriate sleep, eating a healthy diet, and striving to control their weight. We discussed avoiding activities that exacerbate their pain. We discussed that we would reassess their pain scale and adjust their care plan as needed during future visits. The patient is engaged in a longitudinal care relationship for the ongoing management of complex chronic conditions, including Chronic Pain Syndrome and long-term opioid analgesic use, along with other chronic pain conditions outlined in the assessment. The treatment plan involves continuous monitoring that includes random urine drug screens, routine imaging, coordination of care, and a multidisciplinary approach, which has been discussed with the patient and will be followed accordingly. During the patient's visit today, we discussed their chronic pain, including the onset, duration, aggravating and relieving factors, nature of the pain, and their pain scale. We attempted to identify how the pain affected the patient's daily activities, mobility, mood, sleep, and relationships. We discussed both the long and short-term goals for pain management. We discussed the current medications including the dose, effectiveness, and potential side effects. Non-opioid therapies were considered, including NSAIDs and other adjuvant medications. We discussed the importance of exercise and recommended tailored exercises for the patient. We discussed physical therapy and potential referral to a physical therapist, if appropriate. We discussed the risks/benefits of alternative treatments such as acupuncture, care mgr, massage, and biofeedback. We discussed behavioral health and coping strategies. If applicable, we performed a PHQ-9 and SKYLAR-7 with the patient. If the patient scored as having anxiety or depression, they were given education on the diagnosis. We discussed the importance of addressing any mental health concerns as mental health disorders are a common comorbidity of chronic pain. We discussed techniques to reduce stress and promote relaxation. If applicable, the patient was offered a referral to behavioral health. We discussed lifestyle modifications, including getting appropriate sleep, eating a healthy diet, and striving to control their weight. We discussed avoiding activities that exacerbate their pain. We discussed that we would reassess their pain scale and adjust their care plan as needed during future visits. 11/11/2024 Other The patient is engaged in a longitudinal care relationship for the ongoing management of complex chronic conditions, including Chronic Pain Syndrome and long-term opioid analgesic use, along with other chronic pain conditions outlined in the assessment. The treatment plan involves continuous monitoring that includes random urine drug screens, routine imaging, coordination of care, and a multidisciplinary approach, which has been discussed with the patient and will be followed accordingly. During the patient's visit today, we discussed their chronic pain, including the onset, duration, aggravating and relieving factors, nature of the pain, and their pain scale. We attempted to identify how the pain affected the patient's daily activities, mobility, mood, sleep, and relationships. We discussed both the long and short-term goals for pain management. We discussed the current medications including the dose, effectiveness, and potential side effects. Non-opioid therapies were considered, including NSAIDs and other adjuvant medications. We discussed the importance of exercise and recommended tailored exercises for the patient. We discussed physical therapy and potential referral to a physical therapist, if appropriate. We discussed the risks/benefits of alternative treatments such as acupuncture, care mgr, massage, and biofeedback. We discussed behavioral health and coping strategies. If applicable, we performed a PHQ-9 and SKYLAR-7 with the patient. If the patient scored as having anxiety or depression, they were given education on the diagnosis. We discussed the importance of addressing any mental health concerns as mental health disorders are a common comorbidity of chronic pain. We discussed techniques to reduce stress and promote relaxation. If applicable, the patient was offered a referral to behavioral health. We discussed lifestyle modifications, including getting appropriate sleep, eating a healthy diet, and striving to control their weight. We discussed avoiding activities that exacerbate their pain. We discussed that we would reassess their pain scale and adjust their care plan as needed during future visits. The patient is engaged in a longitudinal care relationship for the ongoing management of complex chronic conditions, including Chronic Pain Syndrome and long-term opioid analgesic use, along with other chronic pain conditions outlined in the assessment. The treatment plan involves continuous monitoring that includes random urine drug screens, routine imaging, coordination of care, and a multidisciplinary approach, which has been discussed with the patient and will be followed accordingly. During the patient's visit today, we discussed their chronic pain, including the onset, duration, aggravating and relieving factors, nature of the pain, and their pain scale. We attempted to identify how the pain affected the patient's daily activities, mobility, mood, sleep, and relationships. We discussed both the long and short-term goals for pain management. We discussed the current medications including the dose, effectiveness, and potential side effects. Non-opioid therapies were considered, including NSAIDs and other adjuvant medications. We discussed the importance of exercise and recommended tailored exercises for the patient. We discussed physical therapy and potential referral to a physical therapist, if appropriate. We discussed the risks/benefits of alternative treatments such as acupuncture, care mgr, massage, and biofeedback. We discussed behavioral health and coping strategies. If applicable, we performed a PHQ-9 and SKYLAR-7 with the patient. If the patient scored as having anxiety or depression, they were given education on the diagnosis. We discussed the importance of addressing any mental health concerns as mental health disorders are a common comorbidity of chronic pain. We discussed techniques to reduce stress and promote relaxation. If applicable, the patient was offered a referral to behavioral health. We discussed lifestyle modifications, including getting appropriate sleep, eating a healthy diet, and striving to control their weight. We discussed avoiding activities that exacerbate their pain. We discussed that we would reassess their pain scale and adjust their care plan as needed during future visits. The patient is engaged in a longitudinal care relationship for the ongoing management of complex chronic conditions, including Chronic Pain Syndrome and long-term opioid analgesic use, along with other chronic pain conditions outlined in the assessment. The treatment plan involves continuous monitoring that includes random urine drug screens, routine imaging, coordination of care, and a multidisciplinary approach, which has been discussed with the patient and will be followed accordingly. 12/09/2024 Other The patient is engaged in a longitudinal care relationship for the ongoing management of complex chronic conditions, including Chronic Pain Syndrome and long-term opioid analgesic use, along with other chronic pain conditions outlined in the assessment. The treatment plan involves continuous monitoring that includes random urine drug screens, routine imaging, coordination of care, and a multidisciplinary approach, which has been discussed with the patient and will be followed accordingly. During the patient's visit today, we discussed their chronic pain, including the onset, duration, aggravating and relieving factors, nature of the pain, and their pain scale. We attempted to identify how the pain affected the patient's daily activities, mobility, mood, sleep, and relationships. We discussed both the long and short-term goals for pain management. We discussed the current medications including the dose, effectiveness, and potential side effects. Non-opioid therapies were considered, including NSAIDs and other adjuvant medications. We discussed the importance of exercise and recommended tailored exercises for the patient. We discussed physical therapy and potential referral to a physical therapist, if appropriate. We discussed the risks/benefits of alternative treatments such as acupuncture, care mgr, massage, and biofeedback. We discussed behavioral health and coping strategies. If applicable, we performed a PHQ-9 and SKYLAR-7 with the patient. If the patient scored as having anxiety or depression, they were given education on the diagnosis. We discussed the importance of addressing any mental health concerns as mental health disorders are a common comorbidity of chronic pain. We discussed techniques to reduce stress and promote relaxation. If applicable, the patient was offered a referral to behavioral health. We discussed lifestyle modifications, including getting appropriate sleep, eating a healthy diet, and striving to control their weight. We discussed avoiding activities that exacerbate their pain. We discussed that we would reassess their pain scale and adjust their care plan as needed during future visits. 01/06/2025 Other The patient is engaged in a longitudinal care relationship for the ongoing management of complex chronic conditions, including Chronic Pain Syndrome and long-term opioid analgesic use, along with other chronic pain conditions outlined in the assessment. The treatment plan involves continuous monitoring that includes random urine drug screens, routine imaging, coordination of care, and a multidisciplinary approach, which has been discussed with the patient and will be followed accordingly. During the patient's visit today, we discussed their chronic pain, including the onset, duration, aggravating and relieving factors, nature of the pain, and their pain scale. We attempted to identify how the pain affected the patient's daily activities, mobility, mood, sleep, and relationships. We discussed both the long and short-term goals for pain management. We discussed the current medications including the dose, effectiveness, and potential side effects. Non-opioid therapies were considered, including NSAIDs and other adjuvant medications. We discussed the importance of exercise and recommended tailored exercises for the patient. We discussed physical therapy and potential referral to a physical therapist, if appropriate. We discussed the risks/benefits of alternative treatments such as acupuncture, care mgr, massage, and biofeedback. We discussed behavioral health and coping strategies. If applicable, we performed a PHQ-9 and SKYLAR-7 with the patient. If the patient scored as having anxiety or depression, they were given education on the diagnosis. We discussed the importance of addressing any mental health concerns as mental health disorders are a common comorbidity of chronic pain. We discussed techniques to reduce stress and promote relaxation. If applicable, the patient was offered a referral to behavioral health. We discussed lifestyle modifications, including getting appropriate sleep, eating a healthy diet, and striving to control their weight. We discussed avoiding activities that exacerbate their pain. We discussed that we would reassess their pain scale and adjust their care plan as needed during future visits. The patient is engaged in a longitudinal care relationship for the ongoing management of complex chronic conditions, including Chronic Pain Syndrome and long-term opioid analgesic use, along with other chronic pain conditions outlined in the assessment. The treatment plan involves continuous monitoring that includes random urine drug screens, routine imaging, coordination of care, and a multidisciplinary approach, which has been discussed with the patient and will be followed accordingly. 01/31/2025 Other The patient is engaged in a longitudinal care relationship for the ongoing management of complex chronic conditions, including Chronic Pain Syndrome and long-term opioid analgesic use, along with other chronic pain conditions outlined in the assessment. The treatment plan involves continuous monitoring that includes random urine drug screens, routine imaging, coordination of care, and a multidisciplinary approach, which has been discussed with the patient and will be followed accordingly. During the patient's visit today, we discussed their chronic pain, including the onset, duration, aggravating and relieving factors, nature of the pain, and their pain scale. We attempted to identify how the pain affected the patient's daily activities, mobility, mood, sleep, and relationships. We discussed both the long and short-term goals for pain management. We discussed the current medications including the dose, effectiveness, and potential side effects. Non-opioid therapies were considered, including NSAIDs and other adjuvant medications. We discussed the importance of exercise and recommended tailored exercises for the patient. We discussed physical therapy and potential referral to a physical therapist, if appropriate. We discussed the risks/benefits of alternative treatments such as acupuncture, care mgr, massage, and biofeedback. We discussed behavioral health and coping strategies. If applicable, we performed a PHQ-9 and SKYLAR-7 with the patient. If the patient scored as having anxiety or depression, they were given education on the diagnosis. We discussed the importance of addressing any mental health concerns as mental health disorders are a common comorbidity of chronic pain. We discussed techniques to reduce stress and promote relaxation. If applicable, the patient was offered a referral to behavioral health. We discussed lifestyle modifications, including getting appropriate sleep, eating a healthy diet, and striving to control their weight. We discussed avoiding activities that exacerbate their pain. We discussed that we would reassess their pain scale and adjust their care plan as needed during future visits. The patient is engaged in a longitudinal care relationship for the ongoing management of complex chronic conditions, including Chronic Pain Syndrome and long-term opioid analgesic use, along with other chronic pain conditions outlined in the assessment. The treatment plan involves continuous monitoring that includes random urine drug screens, routine imaging, coordination of care, and a multidisciplinary approach, which has been discussed with the patient and will be followed accordingly. 02/28/2025 Other The patient is engaged in a longitudinal care relationship for the ongoing management of complex chronic conditions, including Chronic Pain Syndrome and long-term opioid analgesic use, along with other chronic pain conditions outlined in the assessment. The treatment plan involves continuous monitoring that includes random urine drug screens, routine imaging, coordination of care, and a multidisciplinary approach, which has been discussed with the patient and will be followed accordingly. During the patient's visit today, we discussed their chronic pain, including the onset, duration, aggravating and relieving factors, nature of the pain, and their pain scale. We attempted to identify how the pain affected the patient's daily activities, mobility, mood, sleep, and relationships. We discussed both the long and short-term goals for pain management. We discussed the current medications including the dose, effectiveness, and potential side effects. Non-opioid therapies were considered, including NSAIDs and other adjuvant medications. We discussed the importance of exercise and recommended tailored exercises for the patient. We discussed physical therapy and potential referral to a physical therapist, if appropriate. We discussed the risks/benefits of alternative treatments such as acupuncture, care mgr, massage, and biofeedback. We discussed behavioral health and coping strategies. If applicable, we performed a PHQ-9 and SKYLAR-7 with the patient. If the patient scored as having anxiety or depression, they were given education on the diagnosis. We discussed the importance of addressing any mental health concerns as mental health disorders are a common comorbidity of chronic pain. We discussed techniques to reduce stress and promote relaxation. If applicable, the patient was offered a referral to behavioral health. We discussed lifestyle modifications, including getting appropriate sleep, eating a healthy diet, and striving to control their weight. We discussed avoiding activities that exacerbate their pain. We discussed that we would reassess their pain scale and adjust their care plan as needed during future visits. The patient is engaged in a longitudinal care relationship for the ongoing management of complex chronic conditions, including Chronic Pain Syndrome and long-term opioid analgesic use, along with other chronic pain conditions outlined in the assessment. The treatment plan involves continuous monitoring that includes random urine drug screens, routine imaging, coordination of care, and a multidisciplinary approach, which has been discussed with the patient and will be followed accordingly. The patient is engaged in a longitudinal care relationship for the ongoing management of complex chronic conditions, including Chronic Pain Syndrome and long-term opioid analgesic use, along with other chronic pain conditions outlined in the assessment. The treatment plan involves continuous monitoring that includes random urine drug screens, routine imaging, coordination of care, and a multidisciplinary approach, which has been discussed with the patient and will be followed accordingly. 03/28/2025 Other The patient is engaged in a longitudinal care relationship for the ongoing management of complex chronic conditions, including Chronic Pain Syndrome and long-term opioid analgesic use, along with other chronic pain conditions outlined in the assessment. The treatment plan involves continuous monitoring that includes random urine drug screens, routine imaging, coordination of care, and a multidisciplinary approach, which has been discussed with the patient and will be followed accordingly. During the patient's visit today, we discussed their chronic pain, including the onset, duration, aggravating and relieving factors, nature of the pain, and their pain scale. We attempted to identify how the pain affected the patient's daily activities, mobility, mood, sleep, and relationships. We discussed both the long and short-term goals for pain management. We discussed the current medications including the dose, effectiveness, and potential side effects. Non-opioid therapies were considered, including NSAIDs and other adjuvant medications. We discussed the importance of exercise and recommended tailored exercises for the patient. We discussed physical therapy and potential referral to a physical therapist, if appropriate. We discussed the risks/benefits of alternative treatments such as acupuncture, care mgr, massage, and biofeedback. We discussed behavioral health and coping strategies. If applicable, we performed a PHQ-9 and SKYLAR-7 with the patient. If the patient scored as having anxiety or depression, they were given education on the diagnosis. We discussed the importance of addressing any mental health concerns as mental health disorders are a common comorbidity of chronic pain. We discussed techniques to reduce stress and promote relaxation. If applicable, the patient was offered a referral to behavioral health. We discussed lifestyle modifications, including getting appropriate sleep, eating a healthy diet, and striving to control their weight. We discussed avoiding activities that exacerbate their pain. We discussed that we would reassess their pain scale and adjust their care plan as needed during future visits. The patient is engaged in a longitudinal care relationship for the ongoing management of complex chronic conditions, including Chronic Pain Syndrome and long-term opioid analgesic use, along with other chronic pain conditions outlined in the assessment. The treatment plan involves continuous monitoring that includes random urine drug screens, routine imaging, coordination of care, and a multidisciplinary approach, which has been discussed with the patient and will be followed accordingly. 04/25/2025 Other The patient is engaged in a longitudinal care relationship for the ongoing management of complex chronic conditions, including Chronic Pain Syndrome and long-term opioid analgesic use, along with other chronic pain conditions outlined in the assessment. The treatment plan involves continuous monitoring that includes random urine drug screens, routine imaging, coordination of care, and a multidisciplinary approach, which has been discussed with the patient and will be followed accordingly. During the patient's visit today, we discussed their chronic pain, including the onset, duration, aggravating and relieving factors, nature of the pain, and their pain scale. We attempted to identify how the pain affected the patient's daily activities, mobility, mood, sleep, and relationships. We discussed both the long and short-term goals for pain management. We discussed the current medications including the dose, effectiveness, and potential side effects. Non-opioid therapies were considered, including NSAIDs and other adjuvant medications. We discussed the importance of exercise and recommended tailored exercises for the patient. We discussed physical therapy and potential referral to a physical therapist, if appropriate. We discussed the risks/benefits of alternative treatments such as acupuncture, care mgr, massage, and biofeedback. We discussed behavioral health and coping strategies. If applicable, we performed a PHQ-9 and SKYLAR-7 with the patient. If the patient scored as having anxiety or depression, they were given education on the diagnosis. We discussed the importance of addressing any mental health concerns as mental health disorders are a common comorbidity of chronic pain. We discussed techniques to reduce stress and promote relaxation. If applicable, the patient was offered a referral to behavioral health. We discussed lifestyle modifications, including getting appropriate sleep, eating a healthy diet, and striving to control their weight. We discussed avoiding activities that exacerbate their pain. We discussed that we would reassess their pain scale and adjust their care plan as needed during future visits. The patient is engaged in a longitudinal care relationship for the ongoing management of complex chronic conditions, including Chronic Pain Syndrome and long-term opioid analgesic use, along with other chronic pain conditions outlined in the assessment. The treatment plan involves continuous monitoring that includes random urine drug screens, routine imaging, coordination of care, and a multidisciplinary approach, which has been discussed with the patient and will be followed accordingly. Plan Of Treatment Pending Test Test Name Order Date *X-RAY CERVICAL SPINE 2-3 VIEW 85015 *X-RAY LUMBAR SPINE 2-3 VIEWS 25015 04/05 *CT LUMBAR SPINE W/O CONTRAST 25142 05/05 CT Scan : Knee 06/25/2024 Urine Drug Screen 07/22/2024 Urine Drug Screen 04/30/2024 *CT CERVICAL SPINE W/O CONTRAST 22178 Next Appt Details Provider Name:Anupam islas, 05/23/2025 10:30:00 AM, [address], [place], [address], Insurance Providers Payer Name Payer Address Payer Phone Subscriber Number Group Number Insured Name Patient Relationship to Insured Coverage Start Date Coverage End Date [place] [employer] [address] [place] [address] [id number] Viri Nuñez Self - patient is the insured Medical (General) History Medical History History ICD Code hypertension
[2025-05-10 22:20] LABS: Hematocrit 41.5 % (36-47); Hemoglobin 13.30 g/dL (11.27-16.99); Mean Corpuscular HGB Conc 32.0 g/dL (30-55); Mean Corpuscular Hemoglobin 28.9 pg (27-33); Mean Corpuscular Volume 90.0 fl (85-98); Nucleated Red Blood Cells % 0 %; Platelet Count 327 10^3/cmm (157-399); Red Blood Count 4.61 10^6/uL (3.85-5.65); White Blood Count 11.25 10^3/uL (3.29-11.43)
--- NOTE | 2025-05-10 22:27 | ED_ITS ---
HPI - Chest Pain 2 General: Chief Complaint: Chest Pain Stated Complaint: Chest Pain Time Seen by Provider: 05/10/25 22:07 Source: patient Mode of arrival: ambulatory Limitations: no limitations History of Present Illness: Patient is a 59-year-old female with past medical history of COPD who presents to the emergency department by EMS complaining of chest pain. States that this pain has been going on for 6 months, she was then the shower when it got worse tonight she states it radiates up her neck bilaterally and into her back. Denies any personal cardiac history, states that she has had cardiac testing in the past but this has been a while. 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 She is also noting a generalized headache, 324 of aspirin was given prehospital but she denied nitroglycerin. She states that her chest pain is worsened by deep breathing, incidentally she is also having pain to the left posterior knee. States that the pain is sharp, she is notably anxious at this time. Mildly tachycardic, rest of her vitals are unremarkable. Denies history of heart attack or stroke. She is noting associated lightheadedness and dizziness, and shortness of breath. MD complaint: chest pain Pertinent past history: other (COPD) Onset (ago): month(s) (6) Timing of current episode: constant Prior episodes: Yes Pain location: substernal Pain radiation: back and neck Severity: moderate Quality: sharp Exacerbating factors: inspiration Associated symptoms: Deny abdominal pain, dyspnea, fever(s), nausea, palpitations or vomiting Treatment prior to arrival: aspirin Related Data Home Medications ?Medication ?Instructions ?Recorded ?Confirmed acetaminophen 325 mg capsule 650 mg PO Q6H PRN 0 04/07/25 (Tylenol) ibuprofen 800 mg tablet (IBU) 800 mg PO Q8H 08/24/19 0 04/07/25 lisinopril 20 mg tablet 20 mg PO DAILY 02/13/2111/26 meloxicam submicronized 10 mg 10 mg PO DAILY 02/13/21 04/07/25 capsule albuterol sulfate 90 mcg/actuation 2 puff inhalation Q 6H PRN 06/13/21 04/07/25 aerosol inhaler (ProAir HFA) levothyroxine 25 mcg capsule 25 mcg PO DAILY 06/13/21 04/07/25 omeprazole 40 mg capsule,delayed 40 mg PO DAILY 04/07/25 release ondansetron HCl 4 mg tablet 4 mg PO Q8H 03/06/2404/07 oxycodone 10 mg tablet 10 mg PO TID PRN 03/06/24 Previous Rx's ?Medication ?Instructions ?Recorded venlafaxine 150 mg 150 mg PO QAM #30 caps 08/24 capsule,extended release 24 hr (Effexor XR) fexofenadine 180 mg tablet 180 mg PO DAILY allergies, 06/13/21 (Allergy Relief (fexofenadine)) congestion #30 tabs doxycycline hyclate 100 mg tablet 100 mg PO BID 7 days #14 tabs 03/06/24 mupirocin 2 % topical ointment 1 applic topical BID #2 2 grams 03/06/24 celecoxib 200 mg capsule (Celebrex) 200 mg PO BID PRN pain 7 days #14 04/07/25 caps Allergies Allergy/AdvReac Type Severity Reaction Status Date / Time codeine Allergy rash/nausea Verified 04/07/25 13:03 menthol (From Chloraseptic Allergy throat Verified 04/07/25 13:03 Cough and Throat) swelling Review of Systems 2 General: Reports: 10 or more systems reviewed and unremarkable except in HPI and below Const: Denies: fever(s), chills or fatigue Eyes: Denies: change in vision ENMT: Denies: throat pain, ear or mastoid pain or nasal discharge Card: Reports: chest pain and lightheadedness; Denies: palpitations or swelling of feet/ankles Resp: Denies: dyspnea, productive cough or wheezing GI: Denies: abdominal pain, nausea, vomiting, diarrhea or constipation : Denies: flank pain, difficulty voiding, dysuria or urinary frequency Musc: Reports: neck pain, back pain and joint pain (left knee) Skin/Breast: Denies: rash Neuro: Reports: headache(s) and dizziness; Denies: numbness in extremities or weakness in extremities PFSH ED 2 PFSH: Medical History COPD (chronic obstructive pulmonary disease) Headache Surgical History History of fusion of cervical spine Family History Other CAD (coronary artery disease) Diabetes Social History Smoking and tobacco/nicotine status: never used tobacco/nicotine Alcohol intake: never Substance/Drug Use: never Physical Exam 2 Const: COMMON NORMALS: no acute distress, patient oriented x3 and no limitations GENERAL APPEARANCE: cooperative NUTRITIONAL APPEARANCE: obese morbidly obese ORIENTATION/CONSCIOUSNESS: Yes awake, Yes oriented to person, Yes oriented to place and Yes oriented to time OTHER: anxious, fidgeting HENMT: COMMON NORMALS: normocephalic, atraumatic and hearing grossly normal bilaterally HEAD & SCALP: normocephalic and atraumatic Eye: COMMON NORMALS: Equal, round and reactive pupils present, EOMs intact bilaterally and conjunctivae normal CONJUNCTIVA: Yes conjunctivae normal P UPIL: Yes Equal, round and reactive pupils present Neck/C-Spine: COMMON NORMALS: full ROM, supple and no JVD Resp: COMMON NORMALS: normal respiratory effort, No retractions, No use of accessory muscles and clear to auscultation bilaterally AUSCULTATION: clear to auscultation bilaterally Cardio: COMMON NORMALS: no JVD, regular rhythm, No clicks present (Cardio), No murmurs present (Cardio) and No rub (Cardio) RATE: tachycardic RHYTHM: r egular rhythm GI: COMMON NORMALS: Normal to inspection, nondistended, normoactive bowel sounds present, Soft to palpation and non-tender AUSCULTATION: Yes normoactive bowel sounds PALPATION: Yes Soft to palpation RECTAL EXAM: d eferred Extremity: COMMON NORMALS: normal to inspection, full ROM and capillary refill normal NARRATIVE EXTREMITY EXAM: Tender to palpation left posterior knee Neuro: COMMON NORMALS: patient oriented x3, moves all extremities, no focal motor deficits and no sensory deficits noted SENSORIUM/ORIENTATION: Yes oriented to person, Yes oriented to place and Yes oriented to time Skin: COMMON NORMALS: no rashes or lesions noted GENERAL SKIN EXAM: no rashes or lesions noted Course 2 Vital Signs: Vital signs: Vital Signs Temperature 98.1 F 05/10/25 22:06 Pulse Rate 102 H 05/10/25 22:06 Respiratory Rate 18 05/10/25 22:06 Blood Pressure 146/83 05/10/25 22:06 Pulse Oximetry 95 05/10/25 22:06 Oxygen Delivery Me thod Room Air 05/10/25 22:06 MDM - Chest Pain Medical Decision Making This patient presented by ambulance for chest pain, she tells me that this has been going on for 4 greater than 6 months it just has gotten worse tonight and she also has neck pain. She has chronic cervical spine history as she has had fusion in the past and sees Dr. Manuel. Also she sees pain clinic and takes hydromorphone regularly for pain. Morbidly obese female on exam, she is minimally tachycardic on arrival likely secondary to pain. She refused nitroglycerin prehospital but she is given nitro here and states that that did not do anything for her pain. Her troponin is negative, EKG showing normal sinus rhythm with no acute ST segment changes and chest x-ray is not demonstrating any cardiomegaly or other acute process. Her BNP is negative, D- dimer negative ruling out pulmonary embolism, and the rest of her lab work is reassuring. She does not see cardiology regularly, I will establish her with 1 and I have low suspicion that this is ACS due to the chronicity. I believe she is stable for discharge home and encouraged her to follow-up with cardiology for further outpatient management, to return with any recurrence of chest pain or other concerning symptoms, and to follow-up with Dr. Manuel and primary care as regular. Patient agrees with this plan at this time. Lab Data 05/10/25 22:15 05/10/25 22:15 Radiology Impressions Chest X-Ray 05/10/25 22:15 IMPRESSION: No acute cardiopulmonary process demonstrated. Laboratory Results WBC 11.25 10^3/uL (3.29-11.43) 05/10/25 22:15 RBC 4.61 10^6/uL (3.85-5.65) 05/10/25 22:15 Hgb 13.30 g/dL (11.27-16.99) 05/10/25 22:15 Hct 41.5 % (36-47) 05/10/25 22:15 MCV 90.0 fl (85-98) 05/10/25 22:15 MCH 28.9 pg (27-33) 05/10/25 22:15 MCHC 32.0 g/dL (30-55) 05/10/25 22:15 RDW 14.0 % (12.1-15.1) 05/10/25 22:15 Plt Count 327 10^3/cmm (157-399) 05/10/25 22:15 MPV 8.7 fL (7.4-10.4) 05/10/25 22:15 Neut % (Auto) 70.4 % 05/10/25 22:15 Lymph % (Auto) 17.0 % 05/10/25 22:15 [place] % (Auto) 7.4 % 05/10/25 22:15 Eos % (Auto) 4.2 % 05/10/25 22:15 Baso % (Auto) 0.6 % 05/10/25 22:15 Neut # (Auto) 7.93 10^3/uL (1.8-7.7) H 05/10/25 22:15 Lymph # (Auto) 1.9 10^3/uL (0.8-4.8) 05/10/25 22:15 [place] # (Auto) 0.8 10^3/uL (0.2-0.9) 05/10/25 22:15 Eos # (Auto) 0.5 10^3/uL (0.0-0.8) 05/10/25 22:15 Baso # (Auto) 0.1 10^3/uL (0.0-0.1) 05/10/25 22:15 Nucleated RBC % (auto) 0 % 05/10/25 22:15 Nucleated RBCs # 0.0 /100WBC 05/10/25 22:15 PT 12.40 SECONDS (12.1-14.9) 05/10/25 22:15 INR 0.86 (0.8-1.2) 05/10/25 22:15 APTT 23.0 SECONDS (23.9-36.7) L 05/10/25 22:15 D-Dimer 0.33 ug/mLFEU (0-0.59) 05/10/25 22:15 Sodium 140 mmol/L (136-145) 05/10/25 22:15 Potassium 4.4 mmol/L (3.5-5.1) 05/10/25 22:15 Chloride 101 mmol/L (98-107) 05/10/25 22:15 Carbon Dioxide 25 mmol/L (22-29) 05/10/25 22:15 Anion Gap 18.4 (5-19) 05/10/25 22:15 BUN 20 mg/dL (8-23) 05/10/25 22:15 Creatinine 0.9 mg/dL (0.5-0.9) 05/10/25 22:15 GFR Calculation 63.9 mL/min (90-130) L 05/10/25 22:15 Glucose 111 mg/dL (65-115) 05/10/25 22:15 Calculated Osmolality 293 mOsm/kg (285-295) 05/10/25 22:15 Calcium 9.4 mg/dL (8.5-10.5) 05/10/25 22:15 Total Bilirubin 0.2 mg/dL (0.15-1.2) 05/10/25 22:15 AST 27 U/L (0-32) 05/10/25 22:15 ALT 33 U/L (0-33) 05/10/25 22:15 Alkaline Phosphatase 125 U/L (35-105) H 05/10/25 22:15 Troponin T Baseline 7 ng/L (0-10) 05/10/25 22:15 NT-Pro-B Natriuret Pep < 36 pg/mL (0-125) 05/10/25 22:15 Total Protein 7.3 g/dL (6.6-8.7) 05/10/25 22:15 Albumin 4.1 g/dL (3.5-5.2) 05/10/25 22:15 Globulin 3.2 g/dL (1.3-4.6) 05/10/25 22:15 Urine Color Yellow (Yellow) 05/10/25 23:21 Urine Appearance Clear (CLEAR) 05/10/25 23:21 Urine pH 5.5 (5-7) 05/10/25 23:21 Ur Specific [place] 1.024 (1.005-1.030) 05/10/25 23:21 Urine Protein Negative (Negative) 05/10/25 23:21 Urine Glucose (UA) Negative (Normal) 05/10/25 23:21 Urine Ketones Negative (Negative) 05/10/25 23:21 Urine Blood 1+ (Negative) A 05/10/25 23:21 Urine Nitrate Negative (Negative) 05/10/25 23:21 Urine Bilirubin Negative (Negative) 05/10/25 23:21 Urine Urobilinogen 1.0 mg/dL (Negative) 05/10/25 23:21 Ur Leukocyte Esterase Negative (Negative) 05/10/25 23:21 Urine RBC 5-10 /hpf (0-2) H 05/10/25 23:21 Urine WBC 0-4 /hpf (0-5) H 05/10/25 23:21 Ur Squamous Epith Cells 0-4 /hpf (0-5) H 05/10/25 23:21 Amorphous Sediment Not Reportable 05/10/25 23:21 Urine Bacteria 1+ /hpf (NONE) H 05/10/25 23:21 Hyaline Casts 55-80 /lpf H 05/10/25 23:21 Urine Mucus 2+ /hpf 05/10/25 23:21 All radiology interpretation(s) finalized by discharge Discharge Plan Discharge Patient Disposition: Home Clinical Impression: Chronic cervical pain Chest pain Qualifiers: Chest pain type: unspecified Qualified Code(s): R07.9 - Chest pain, unspecified Condition: Stable Prescriptions: No Action lisinopril 20 mg tablet 20 mg PO DAILY meloxicam submicronized 10 mg capsule 10 mg PO DAILY acetaminophen [Tylenol] 325 mg capsule 650 mg PO Q6H PRN ibuprofen [IBU] 800 mg tablet 800 mg PO Q8H venlafaxine [Effexor XR] 150 mg capsule,extended release 24hr 150 mg PO QAM Qty: 30 4RF levothyroxine 25 mcg capsule 25 mcg PO DAILY albuterol sulfate [ProAir HFA] 90 mcg/actuation HFA aerosol inhaler 2 puff inhalation Q6H PRN fexofenadine [Allergy Relief (fexofenadine)] 180 mg tablet 180 mg PO DAILY Qty: 30 3RF celecoxib [Celebrex] 200 mg capsule 200 mg PO BID PRN (Reason: pain) 7 Days Qty: 14 0RF oxycodone 10 mg tablet 10 mg PO TID PRN omeprazole 40 mg capsule,delayed release(DR/EC) 40 mg PO DAILY ondansetron HCl 4 mg tablet 4 mg PO Q8H doxycycline hyclate 100 mg tablet 100 mg PO BID 7 Days Qty: 14 0RF mupirocin 2 % ointment 1 applic topical BID Qty: 22 0RF Discharge Orders: Discharge ED (Routine); Ordered 05/10/25 Ordered By: Edwar Duong Referrals: Leah Mendoza DO [Primary Care Provider, [facility]] Patient Instructions: Patient Portal & Cristino Instructions Activity Restrictions/Additional Instructions: Discharge Instructions: Neck Pain You are being discharged today after evaluation for chest and neck pain. All tests, including heart and lung studies, were normal. Your pain may be related to your history of cervical spine fusion and chronic neck issues. What to expect: - Chronic neck pain can persist or recur, but most people improve over time with conservative care. - It is common to have some discomfort, but new or worsening symptoms should be reported. Activity and self-care: - Stay active as tolerated. Gentle stretching and strengthening exercises may help; avoid activities that worsen your pain. - Use [id number] pain medications such as acetaminophen or NSAIDs as needed, unless otherwise directed. - Applying heat or cold packs to the neck may provide relief. - Consider using a supportive pillow at night. Short-term use of a soft cervical collar may help, but avoid prolonged immobilization. - Physical therapy may be beneficial; this will be discussed at your follow-up. When to seek medical attention: - If you develop new weakness, numbness, tingling, or loss of coordination in your arms or legs. - If you experience severe, unrelenting pain, fever, unexplained weight loss, or difficulty walking. - If you have chest pain that is severe, sudden, or associated with shortness of breath, call 911. Follow-up: - You will be referred to outpatient cardiology for further evaluation. - Consider follow-up with your primary care provider or a pain specialist if symptoms persist or worsen. Additional notes: - Most cases of chronic neck pain improve with time and conservative management. - Surgery is rarely needed unless there are progressive neurological symptoms or disabling pain not responsive to other treatments. If you have any questions or concerns, please contact your healthcare provider. Print Language: French Coding Level of Care Code ED Plant Engineering Supervisor for Chg Fwd Heart Score HEART Score Components History: Slightly Suspicous EKG: Normal Age: 45-64 yrs Risk Factors: >/=3 Risk Factors Troponin: Baseline Trop <16 ng/L HEART Score RESULT HEART Score: 3
[2025-05-10 22:35] LABS: INR 0.86 (0.8-1.2); Partial Thromboplastin Time 23.0 SECONDS (23.9-36.7); Prothrombin Time 12.40 SECONDS (12.1-14.9)
[2025-05-10 22:43] LABS: Troponin(5th) Baseline 7 ng/L (0-10)
[2025-05-10 22:58] LABS: Alanine Aminotransferase 33 U/L (0-33); Albumin Level 4.1 g/dL (3.5-5.2); Alkaline Phosphatase 125 U/L (35-105); Anion Gap 18.4 (5-19); Aspartate Amino Transferase 27 U/L (0-32); Blood Urea Nitrogen 20 mg/dL (8-23); Calcium 9.4 mg/dL (8.5-10.5); Carbon Dioxide 25 mmol/L (22-29); Chloride 101 mmol/L (98-107); Creatinine Clr Calc Pharmacy 91.4848; Globulin 3.2 g/dL (1.3-4.6); Glucose 111 mg/dL (65-115); NT Pro B Type Natriuretic Pept < 36 pg/mL (0-125); Osmolality Calculated 293 mOsm/kg (285-295); Potassium 4.4 mmol/L (3.5-5.1); Sodium 140 mmol/L (136-145); Total Protein 7.3 g/dL (6.6-8.7)
[2025-05-10 23:30] LABS: Glucose Urine UA Negative (Normal); Nitrate Urine Negative (Negative); Specific Gravity, Urine 1.024 (1.005-1.030)
[2025-05-10 23:51] LABS: UA Manual Slide Review YES
[2025-05-10 23:52] LABS: Add Urine Microscopic? YES
[2025-05-11 00:22] VITALS: RESP 18
[2025-05-11] MEDS: fentaNYL 50 mcg/mL INJ 2mL IVP (00:22)
[2025-05-11 00:23] VITALS: BP 124/76; PULSE 94; RESP 16; O2SAT 95
--- NOTE | 2025-05-11 10:08 | DCPLANNER ---
Referral sent to Cardiology
== END 2025-05-11 00:24 | disposition home or self-care (01) ==
PROVIDERS: Emergency Provider Physician Assistant; PCP Family Medicine
DX: M54.2 Cervicalgia (principal); R07.9 Chest pain, unspecified; J44.9 Chronic obstructive pulmonary disease, unspecified
CPT/HCPCS: 36415; 71045; 80053; 81001; 83880; 84484; 85025; 85378; 85610; 85730; 93005; 96374; 99285; J3010; J9999

== ENCOUNTER → 2025-06-15 11:02 | Outpatient (BNVA) | payer MEDICAID, SELFPAY | PROVIDERS: PCP Family Medicine; Referring Provider Physician Assistant; Visit Provider Internal Medicine Cardiovascular Disease | DX: R07.89 Other chest pain (principal); I10 Essential (primary) hypertension; E78.5 Hyperlipidemia, unspecified; I95.1 Orthostatic hypotension; R53.83 Other fatigue; Z87.891 Personal history of nicotine dependence; R07.9 Chest pain, unspecified | CPT/HCPCS: 93005; 99204 ==

== ENCOUNTER 2025-07-01 12:49 | Outpatient (CLI) | payer MEDICAID, SELFPAY ==
--- NOTE | 2025-07-01 12:45 | USCV_ITS ---
Viri Nuñez Age: 59 Gender: F : 1965 Exam Date: 07/01/2025 13:22 Ordering Phys: Alan Lakhani MD ([email or web address]) Technologist: Lisandro Kincaid Exam Location: [facility] [place] Indication: chest pain BP: 142 / 86 HR: 77 Rhythm: Sinus Technical Quality: MEASUREMENTS (Male / Female) Normal Values 2D ECHO LV Diastolic Diameter PLAX 5.0 cm 4.2 - 5.9 / 3.9 - 5.3 cm IVS Diastolic Thickness 0.8 cm 0.6 - 1.0 / 0.6 - 0.9 cm IVS Systolic Thickness 1.3 cm LVPW Diastolic Thickness 0.8 cm 0.6 - 1.0 / 0.6 - 0.9 cm LVPW Systolic Thickness 1.2 cm LVOT Diameter 2.0 cm LV Ejection Fraction 2D Teich 72.9 % LV Ejection Fraction MOD 4C 61.1 % LV Ejection Fraction MOD 2C 68.6 % LV Ejection Fraction 2C AL 67.9 % LA Diameter 3.0 cm RA Systolic Volume 4C AL 34.9 ml RA Systolic Volume 4C MOD 34.3 ml LA Sys Volume AL 60.2 cm cubed LA Sys Volume Index AL 23.3 cm cubed/m squared Aorta at Sinotubular Diameter 2.6 cm IVC Diameter 1.6 cm M-MODE LA Ao Ratio MM 1.5 AV Cusp Separation MM 1.9 cm DOPPLER AV Peak Velocity 143.0 cm/s LVOT Peak Velocity 94.0 cm/s AV Area Cont Eq vti 2.3 cm squared AV Area Cont Eq pk 2.1 cm squared MV Peak Velocity 103.0 cm/s MV Area PHT 6.0 cm squared TV Peak Velocity 294.3 cm/s TR Peak Velocity 304.0 cm/s TR Peak Gradient 37.0 mmHg TR Mean Velocity 230.0 cm/s TR Mean Gradient 22.8 mmHg TR Velocity Time Integral 92.0 cm PV Peak Velocity 95.0 cm/s RV Ejection Time 0.3 s FINDINGS Left Ventricle Normal left ventricular size, systolic function and wall thickness with no regional wall motion abnormality. Left ventricular ejection fraction is 61%. Normal left ventricular diastolic function. Right Ventricle Normal right ventricular size and systolic function. Right Atrium Normal right atrial size. Left Atrium Normal left atrial size. IA Septum Normal appearance of the interatrial septum. Mitral Valve Normal mitral valve structure. No mitral valve stenosis or regurgitation. Aortic Valve Normal aortic valve structure. No aortic valve stenosis or regurgitation. Tricuspid Valve Normal tricuspid valve structure. Mild regurgitation. Normal pulmonary pressure. Pulmonic Valve Normal pulmonic valve structure. Mild regurgitation. Pericardium No pericardial effusion. Aorta Normal diameter of the aortic root and ascending thoracic aorta. IVC Normal IVC diameter. CONCLUSIONS Normal left ventricular size, systolic function and wall thickness with ejection fraction of 61%. Normal right ventricular size and systolic function. No significant valvular abnormalities. Alan Lakhani MD, FACC (Electronically Signed) Final Date: 01 July 2025 14:43 S
== END 2025-07-01 12:50 | disposition home or self-care (01) ==
LOC: RAD 12:51
PROVIDERS: PCP Family Medicine; Visit Provider Internal Medicine Cardiovascular Disease
DX: R07.89 Other chest pain (principal); I36.1 Nonrheumatic tricuspid (valve) insufficiency
CPT/HCPCS: 93306